=== PATIENT | female | born 1970 | race Caucasian/White ===

== ENCOUNTER 2019-11-11 05:05 | Inpatient (IN) | payer MEDICAID ==
[~2019-11-11] VITALS: Ht 157.5 cm; Wt 61.5 kg
[2019-11-11 06:18] VITALS: BP 105/66
[2019-11-11 06:55] LABS: ALBUMIN 2.9 g/dL (3.4-5.0); ANION GAP 6 mmol/L (5-15); CALCIUM 7.8 mg/dL (8.5-10.1); CHLORIDE 118 mmol/L (98-107); CREATININE 1.04 mg/dL (0.55-1.02)
[2019-11-11 06:58] LABS: ALANINE AMINOTRANSFERASE 12 U/L (12-78); MEAN CORPUSCULAR HEMOGLOBIN 26.4 pg (27.0-34.8); MEAN PLATELET VOLUME 7.4 fL (7.4-10.4); PLATELET COUNT 415 x10^3/uL (130-400); RED CELL DISTRIBUTION WIDTH 20.1 % (9.6-15.2)
[2019-11-11 06:59] LABS: INTERNATIONAL NORMALIZED RATIO 0.95 (0.93-1.1); PROTHROMBIN TIME 10.1 Seconds (9.6-11.5)
[2019-11-11 07:00] LABS: ALKALINE PHOSPHATASE 81 U/L (45-117); BILIRUBIN,TOTAL 0.3 mg/dL (0.2-1.0)
[2019-11-11 07:42] LABS: BASOPHILS # (AUTO) 0.02 x10^3/uL (0-0.1); BASOPHILS % (AUTO) 0 % (0-1); EOSINOPHILS # (AUTO) 0.01 x10^3/uL (0-0.4); EOSINOPHILS % (AUTO) 0 % (1-7); LYMPHOCYTES % (AUTO) 21 % (22-44); MD MORPH REVIEW ONLY; MONOCYTES # (AUTO) 0.39 x10^3/uL (0.2-0.8); MONOCYTES % (AUTO) 6 % (2-9); NEUTROPHILS # (AUTO) 4.99 x10^3/uL (1.8-6.8); NEUTROPHILS % (AUTO) 73 % (42-75)
[2019-11-11 07:46] VITALS: BP 103/69
[2019-11-11 07:54] LABS: ANISOCYTOSIS 2+; OVALOCYTES 2+; POLYCHROMASIA 1+
[2019-11-11 07:55] LABS: <PLATELET ESTIMATE> INCREASED; <PLT MORPHOLOGY> NORMAL PLT MORPH
[2019-11-11] MEDS ORDERED: PANTOPRAZOLE 80 MG in SODIUM CHLORIDE 0.9% 50 ML IV ONE (08:00)
[2019-11-11] MEDS ORDERED: morphine SULFATE 10 MG/ML, 1ML IVPush PRN (09:00)
[2019-11-11] MEDS ORDERED: BISACODYL 10 MG SUPP PR PRN (09:00)
[2019-11-11] MEDS ORDERED: hydrALAzine 20 MG/ML, 1ML IVPush PRN (09:00)
[2019-11-11] MEDS: NS + 20MEQ KCL 1,000 ML IV SCH (11:13)
[2019-11-11] MEDS: PANTOPRAZOLE 80 MG in SODIUM CHLORIDE 0.9% 100 ML IV SCH ×2 (11:13→22:10)
[2019-11-11] MEDS ORDERED: CHLORHEXIDINE 15 ML UDC ONE (11:56)
[2019-11-11] MEDS ORDERED: PROPOFOL 10 MG/ML, 20ML ONE ×2 (12:15)
[2019-11-11] MEDS ORDERED: FENTANYL PF 100 MCG/2ML IV PRN (13:00)
[2019-11-11] MEDS ORDERED: LABETALOL 5MG/ML, 20ML IV PRN (13:00)
[2019-11-11] MEDS ORDERED: HYDROmorphone 1 MG/ML, 1ML INJ IVPush PRN (13:00)
[2019-11-11] MEDS ORDERED: EPHEDRINE 50 MG/ML, 1ML IVPush PRN (13:00)
[2019-11-11] MEDS ORDERED: OXYcodone 5 MG/5 ML ORAL.SOL UDC PO PRN (13:00)
[2019-11-11] MEDS ORDERED: DIAZEPAM 5 MG/ML, 2ML IVPush PRN (13:00)
[2019-11-11] MEDS ORDERED: PROMETHAZINE 12.5 MG SUPP PR PRN (13:00)
[2019-11-11] MEDS ORDERED: MIDAZOLAM 1 MG/ML, 2ML IV PRN (13:00)
[2019-11-11] MEDS ORDERED: DIPHENHYDRAMINE 50 MG/ML, 1ML IVPush PRN (13:00)
[2019-11-11] MEDS ORDERED: hydrALAzine 20 MG/ML, 1ML IV PRN (13:00)
[2019-11-11] MEDS ORDERED: ALBUTEROL SULFATE 2.5 MG/3 ML NPPB PRN (13:00)
[2019-11-11] MEDS ORDERED: MEPERIDINE/PF 25MG/0.5ML IVPush PRN (13:00)
[2019-11-11] MEDS ORDERED: ONDANSETRON 2MG/ML, 2ML IVPush PRN (13:00)
[2019-11-11] MEDS ORDERED: PROMETHAZINE 25 MG/ML, 1ML IVPush PRN (13:00)
[2019-11-11 13:40] VITALS: BP 103/69
[2019-11-11 19:49] VITALS: BP 119/79
[2019-11-11] MEDS ORDERED: ACETAMINOPHEN 325 MG TABLET ONE (23:32)
[2019-11-11] MEDS: ACETAMINOPHEN 325 MG TABLET PO PRN (23:33)
[2019-11-12] MEDS: NS + 20MEQ KCL 1,000 ML IV SCH ×3 (00:32→20:26)
[2019-11-12 00:34] VITALS: BP 121/86
[2019-11-12 06:10] LABS: MEAN CORPUSCULAR HEMOGLOBIN 25.9 pg (27.0-34.8); MEAN CORPUSCULAR HGB CONC 31.6 g/dL (32.4-35.8); PLATELET COUNT 413 x10^3/uL (130-400); RED BLOOD COUNT 2.25 x10^6/uL (3.82-5.3); RED CELL DISTRIBUTION WIDTH 20.4 % (9.6-15.2)
[2019-11-12 06:28] LABS: ALBUMIN 2.9 g/dL (3.4-5.0); CALCIUM 8.1 mg/dL (8.5-10.1); CHLORIDE 118 mmol/L (98-107)
[2019-11-12 06:32] LABS: ALANINE AMINOTRANSFERASE 8 U/L (12-78); ALKALINE PHOSPHATASE 77 U/L (45-117); BILIRUBIN,TOTAL 0.4 mg/dL (0.2-1.0); CREATININE 0.87 mg/dL (0.55-1.02); TOTAL PROTEIN 6.2 g/dL (6.4-8.2)
[2019-11-12 06:41] LABS: ANION GAP 7 mmol/L (5-15)
[2019-11-12 06:56] LABS: BASOPHILS # (AUTO) 0.01 x10^3/uL (0-0.1); BASOPHILS % (AUTO) 0 % (0-1); EOSINOPHILS % (AUTO) 0 % (1-7); LYMPHOCYTES # (AUTO) 1.66 x10^3/uL (1-3.4); LYMPHOCYTES % (AUTO) 32 % (22-44); MD SCAN; MONOCYTES # (AUTO) 0.35 x10^3/uL (0.2-0.8); MONOCYTES % (AUTO) 7 % (2-9); NEUTROPHILS # (AUTO) 3.18 x10^3/uL (1.8-6.8); NEUTROPHILS % (AUTO) 61 % (42-75)
[2019-11-12 07:13] VITALS: BP 147/85
[2019-11-12] MEDS ORDERED: PANTOPRAZOLE 40 MG IV IVPush SCH (07:30)
[2019-11-12] MEDS: PANTOPRAZOLE 80 MG in SODIUM CHLORIDE 0.9% 100 ML IV SCH ×2 (08:35→20:26)
[2019-11-12] MEDS: ACETAMINOPHEN 325 MG TABLET PO PRN ×3 (08:46→22:20)
[2019-11-12 12:32] VITALS: BP 129/81
[2019-11-12] MEDS: ONDANSETRON 2MG/ML, 2ML IVPush PRN (20:26)
[2019-11-12 20:38] VITALS: BP 127/80
[2019-11-12] MEDS ORDERED: OXYcodone IR 5MG TABLET PO ONE (23:30)
[2019-11-13] VITALS (8 sets, daily range): BP systolic 116–138; BP diastolic 78–88
[2019-11-13 06:13] LABS: ABSOLUTE RETICS # 0.089 x10^6/uL (0.5-2.5); MEAN CORPUSCULAR HEMOGLOBIN 25.7 pg (27.0-34.8); MEAN CORPUSCULAR HGB CONC 31.3 g/dL (32.4-35.8); MEAN PLATELET VOLUME 7.6 fL (7.4-10.4); PLATELET COUNT 421 x10^3/uL (130-400); RED BLOOD COUNT 2.34 x10^6/uL (3.82-5.3); RED CELL DISTRIBUTION WIDTH 20.2 % (9.6-15.2); RETICULOCYTE COUNT % 3.82 % (0.5-1.5)
[2019-11-13 06:15] LABS: CHLORIDE 116 mmol/L (98-107)
[2019-11-13 06:16] LABS: RED BLOOD COUNT 2.34 x10^6/uL (3.82-5.3)
[2019-11-13] MEDS: PANTOPRAZOLE 80 MG in SODIUM CHLORIDE 0.9% 100 ML IV SCH ×2 (06:32→17:05)
[2019-11-13] MEDS: NS + 20MEQ KCL 1,000 ML IV SCH ×2 (06:32→17:05)
[2019-11-13 06:44] LABS: BASOPHILS # (AUTO) 0.02 x10^3/uL (0-0.1); BASOPHILS % (AUTO) 0 % (0-1); EOSINOPHILS % (AUTO) 0 % (1-7); LYMPHOCYTES # (AUTO) 1.77 x10^3/uL (1-3.4); LYMPHOCYTES % (AUTO) 32 % (22-44); MD SCAN; MONOCYTES # (AUTO) 0.33 x10^3/uL (0.2-0.8); MONOCYTES % (AUTO) 6 % (2-9); NEUTROPHILS # (AUTO) 3.43 x10^3/uL (1.8-6.8); NEUTROPHILS % (AUTO) 62 % (42-75)
[2019-11-13 07:07] LABS: % IRON SATURATION 5 % (20-55); ANION GAP 7 mmol/L (5-15); CALCIUM 8.3 mg/dL (8.5-10.1); IRON LEVEL 20 mcg/dL (50-170); TOTAL IRON BINDING CAPACITY 367 mcg/dL (250-450)
[2019-11-13] MEDS: LIDODERM 5% PATCH TD PRN (15:39)
[2019-11-13] MEDS ORDERED: GOLYTELY 4,000ML ORAL.SOL PO ONE (19:00)
[2019-11-13] MEDS: ONDANSETRON 2MG/ML, 2ML IVPush PRN (19:37)
[2019-11-13 22:51] LABS: OCCULT BLOOD NEGATIVE (NEGATIVE)
[2019-11-14 01:50] VITALS: BP 117/75
[2019-11-14] MEDS: ONDANSETRON 2MG/ML, 2ML IVPush PRN ×3 (02:01→22:27)
[2019-11-14] MEDS: ACETAMINOPHEN 325 MG TABLET PO PRN ×4 (02:02→22:27)
[2019-11-14] MEDS: PANTOPRAZOLE 80 MG in SODIUM CHLORIDE 0.9% 100 ML IV SCH ×2 (02:50→17:35)
[2019-11-14] MEDS: NS + 20MEQ KCL 1,000 ML IV SCH ×2 (02:50→16:50)
[2019-11-14 06:38] LABS: CHLORIDE 114 mmol/L (98-107)
[2019-11-14 06:44] LABS: MEAN CORPUSCULAR HEMOGLOBIN 26.8 pg (27.0-34.8); MEAN PLATELET VOLUME 7.7 fL (7.4-10.4); PLATELET COUNT 358 x10^3/uL (130-400); RED BLOOD COUNT 2.76 x10^6/uL (3.82-5.3); RED CELL DISTRIBUTION WIDTH 18.7 % (9.6-15.2)
[2019-11-14 06:57] LABS: ANION GAP 10 mmol/L (5-15); CALCIUM 8.3 mg/dL (8.5-10.1); CREATININE 0.81 mg/dL (0.55-1.02)
[2019-11-14 07:18] LABS: BASOPHILS # (AUTO) 0.02 x10^3/uL (0-0.1); BASOPHILS % (AUTO) 0 % (0-1); EOSINOPHILS # (AUTO) 0.01 x10^3/uL (0-0.4); EOSINOPHILS % (AUTO) 0 % (1-7); LYMPHOCYTES # (AUTO) 1.47 x10^3/uL (1-3.4); LYMPHOCYTES % (AUTO) 20 % (22-44); MD MORPH REVIEW ONLY; MONOCYTES # (AUTO) 0.33 x10^3/uL (0.2-0.8); MONOCYTES % (AUTO) 4 % (2-9); NEUTROPHILS # (AUTO) 5.73 x10^3/uL (1.8-6.8); NEUTROPHILS % (AUTO) 76 % (42-75)
[2019-11-14 07:20] LABS: <PLATELET ESTIMATE> ADEQUATE; <PLT MORPHOLOGY> NORMAL PLT MORPH; ANISOCYTOSIS 1+; OVALOCYTES 2+; POLYCHROMASIA 1+
[2019-11-14 08:30] VITALS: BP 132/82
[2019-11-14] MEDS ORDERED: CHLORHEXIDINE 15 ML UDC MM STA (09:55)
[2019-11-14] MEDS ORDERED: CHLORHEXIDINE 15 ML UDC ONE (11:18)
[2019-11-14] MEDS ORDERED: PROPOFOL 50 ML ONE (12:16)
[2019-11-14] MEDS: BUTALB/APAP/CAFFEINE 50MG/325MG/40MG PO PRN (13:34)
[2019-11-14 15:30] VITALS: BP 126/64
[2019-11-14] MEDS: LIDODERM 5% PATCH TD PRN (16:50)
[2019-11-14 18:52] VITALS: BP 132/85
[2019-11-14 23:05] LABS: CLOSTRIDIUM DIFFICILE ANTIGEN POSITIVE; CLOSTRIDIUM DIFFICILE TOXIN NEGATIVE (Negative)
[2019-11-15 00:21] VITALS: BP 124/76
[2019-11-15] MEDS ORDERED: MELATONIN 5 MG TABLET ONE (00:37)
[2019-11-15] MEDS: MELATONIN 5 MG TABLET PO PRN ×2 (00:41→22:17)
[2019-11-15 02:16] LABS: MICROSCOPIC AUTO
[2019-11-15] MEDS: BUTALB/APAP/CAFFEINE 50MG/325MG/40MG PO PRN ×3 (02:30→22:17)
[2019-11-15] MEDS: PANTOPRAZOLE 80 MG in SODIUM CHLORIDE 0.9% 100 ML IV SCH ×2 (03:39→09:00)
[2019-11-15] MEDS: NS + 20MEQ KCL 1,000 ML IV SCH ×3 (03:39→17:46)
[2019-11-15 06:46] LABS: MEAN CORPUSCULAR HEMOGLOBIN 26.5 pg (27.0-34.8); MEAN CORPUSCULAR HGB CONC 32.2 g/dL (32.4-35.8); MEAN PLATELET VOLUME 7.3 fL (7.4-10.4); PLATELET COUNT 384 x10^3/uL (130-400); RED BLOOD COUNT 2.67 x10^6/uL (3.82-5.3)
[2019-11-15 06:54] LABS: ANION GAP 6 mmol/L (5-15); CALCIUM 8.4 mg/dL (8.5-10.1); CHLORIDE 114 mmol/L (98-107)
[2019-11-15 06:55] LABS: CREATININE 0.78 mg/dL (0.55-1.02)
[2019-11-15 07:13] LABS: BASOPHILS # (AUTO) 0.01 x10^3/uL (0-0.1); BASOPHILS % (AUTO) 0 % (0-1); EOSINOPHILS % (AUTO) 0 % (1-7); LYMPHOCYTES # (AUTO) 1.75 x10^3/uL (1-3.4); LYMPHOCYTES % (AUTO) 30 % (22-44); MD MORPH REVIEW ONLY; MONOCYTES % (AUTO) 7 % (2-9); NEUTROPHILS # (AUTO) 3.58 x10^3/uL (1.8-6.8); NEUTROPHILS % (AUTO) 62 % (42-75)
[2019-11-15 07:14] LABS: <PLATELET ESTIMATE> ADEQUATE; <PLT MORPHOLOGY> NORMAL PLT MORPH; ANISOCYTOSIS 1+; OVALOCYTES 2+; POLYCHROMASIA 1+
[2019-11-15] MEDS ORDERED: IRON DEXTRAN COMPLEX 25 MG in SODIUM CHLORIDE 0.9% 50 ML IV ONE (07:30)
[2019-11-15] MEDS ORDERED: IRON DEXTRAN COMPLEX 0 MG in SODIUM CHLORIDE 0.9% 250 ML IV ONE (07:30)
[2019-11-15] MEDS ORDERED: EPINEPHRINE 1 MG/ML, 1ML SQ PRN (08:00)
[2019-11-15 08:25] LABS: CRYPTOSPORIDIUM ANTIGEN Negative (Negative)
[2019-11-15 08:50] VITALS: BP 121/81
[2019-11-15] MEDS ORDERED: IRON DEXTRAN COMPLEX 1,500 MG in SODIUM CHLORIDE 0.9% 250 ML IV ONE (12:00)
[2019-11-15] MEDS ORDERED: VANC125C11 PO (12:57)
[2019-11-15] MEDS: VANCOMYCIN 50 MG/ML ORAL SUSP PO SCH ×2 (13:00→17:47)
[2019-11-15 15:20] VITALS: BP 128/84
[2019-11-15] MEDS: POTASSIUM CHLORIDE 20 MEQ TAB.ER.PRT PO SCH (17:00)
[2019-11-15 19:29] VITALS: BP 141/84
[2019-11-15] MEDS: SUCRALFATE 1 GM TABLET PO SCH (20:05)
[2019-11-16] MEDS: VANCOMYCIN 50 MG/ML ORAL SUSP PO SCH ×2 (00:20→04:15)
[2019-11-16] MEDS: NS + 20MEQ KCL 1,000 ML IV SCH (00:25)
[2019-11-16 01:19] VITALS: BP 112/70
[2019-11-16] MEDS: ACETAMINOPHEN 325 MG TABLET PO PRN (02:31)
[2019-11-16 02:52] LABS: ANION GAP 8 mmol/L (5-15); CALCIUM 8.5 mg/dL (8.5-10.1); CHLORIDE 113 mmol/L (98-107); CREATININE 0.88 mg/dL (0.55-1.02); MEAN CORPUSCULAR HEMOGLOBIN 26.8 pg (27.0-34.8); MEAN CORPUSCULAR HGB CONC 33.1 g/dL (32.4-35.8); MEAN PLATELET VOLUME 7.6 fL (7.4-10.4); PLATELET COUNT 411 x10^3/uL (130-400); RED BLOOD COUNT 2.76 x10^6/uL (3.82-5.3); RED CELL DISTRIBUTION WIDTH 19.3 % (9.6-15.2)
[2019-11-16 04:22] LABS: BASOPHILS # (AUTO) 0.02 x10^3/uL (0-0.1); BASOPHILS % (AUTO) 0 % (0-1); EOSINOPHILS # (AUTO) 0.01 x10^3/uL (0-0.4); EOSINOPHILS % (AUTO) 0 % (1-7); LYMPHOCYTES # (AUTO) 2.45 x10^3/uL (1-3.4); LYMPHOCYTES % (AUTO) 26 % (22-44); MD MORPH REVIEW ONLY; MONOCYTES # (AUTO) 0.71 x10^3/uL (0.2-0.8); MONOCYTES % (AUTO) 8 % (2-9); NEUTROPHILS # (AUTO) 6.33 x10^3/uL (1.8-6.8); NEUTROPHILS % (AUTO) 67 % (42-75)
[2019-11-16 04:24] LABS: ANISOCYTOSIS 1+; OVALOCYTES 2+
[2019-11-16 04:25] LABS: <PLATELET ESTIMATE> ADEQUATE; <PLT MORPHOLOGY> NORMAL PLT MORPH
[2019-11-16 06:50] VITALS: BP 129/81
[2019-11-16] MEDS: POTASSIUM CHLORIDE 20 MEQ TAB.ER.PRT PO SCH (08:30)
[2019-11-16] MEDS: SUCRALFATE 1 GM TABLET PO SCH (08:30)
[2019-11-16] MEDS ORDERED: SUCR1TAB33 PO (10:46)
== END 2019-11-16 12:51 | disposition home or self-care (01) | DRG 244 ==
LOC: 5SO 06:02
PROVIDERS: ADMIT Family Medicine; ATTEND Internal Medicine
PROC: 0DB58ZX Excision of Esophagus, Via Natural or Artificial Opening Endoscopic, Diagnostic (ICD-10-PCS; 2019-11-14)
PROC: 0DBH8ZX Excision of Cecum, Via Natural or Artificial Opening Endoscopic, Diagnostic (ICD-10-PCS; 2019-11-14)
PROC: 0DBE8ZX Excision of Large Intestine, Via Natural or Artificial Opening Endoscopic, Diagnostic (ICD-10-PCS; 2019-11-14)
PROC: 30233N1 Transfusion of Nonautologous Red Blood Cells into Peripheral Vein, Percutaneous Approach (ICD-10-PCS; 2019-11-14)
PROC: 0DB98ZX Excision of Duodenum, Via Natural or Artificial Opening Endoscopic, Diagnostic (ICD-10-PCS; principal; 2019-11-14 13:45)
DX: K57.91 Diverticulosis of intestine, part unspecified, without perforation or abscess with bleeding (principal); E03.9 Hypothyroidism, unspecified; D50.9 Iron deficiency anemia, unspecified; N17.0 Acute kidney failure with tubular necrosis; K21.9 Gastro-esophageal reflux disease without esophagitis; J45.909 Unspecified asthma, uncomplicated; E78.5 Hyperlipidemia, unspecified; Z20.828 Contact with and (suspected) exposure to other viral communicable diseases; K58.9 Irritable bowel syndrome, unspecified; R12 Heartburn; E87.6 Hypokalemia; R53.83 Other fatigue; E66.9 Obesity, unspecified; K44.9 Diaphragmatic hernia without obstruction or gangrene; E86.9 Volume depletion, unspecified; G45.9 Transient cerebral ischemic attack, unspecified; Z80.8 Family history of malignant neoplasm of other organs or systems; Z82.49 Family history of ischemic heart disease and other diseases of the circulatory system; Z88.2 Allergy status to sulfonamides; Z88.5 Allergy status to narcotic agent; Z88.0 Allergy status to penicillin; Z88.8 Allergy status to other drugs, medicaments and biological substances; Z90.49 Acquired absence of other specified parts of digestive tract; Z90.710 Acquired absence of both cervix and uterus; Z68.24 Body mass index [BMI] 24.0-24.9, adult; Z80.0 Family history of malignant neoplasm of digestive organs; Z87.11 Personal history of peptic ulcer disease
CPT/HCPCS: 36415; 80048; 80053; 81001; 82272; 82607; 82668; 82728; 82784; 83010; 83516; 83540; 83550; 83615; 85014; 85018; 85025; 85045; 85610; 86850; 86860; 86870; 86880; 86900; 86902; 86905; 86906; 86922; 86923; 86970; 86978; 87046; 87086; 87147; 87324; 87328; 87329; 87427; 87635; 88305; 93308; 93321; 93325; G0378; J1750; J2405; J2704; J3370; J3480; C9113; J7050; P9016

== ENCOUNTER 2020-05-04 17:18 | Inpatient (IN) | payer MEDICAID ==
[~2020-05-04] VITALS: Ht 157.5 cm; Wt 76.9 kg
[~2020-05-04 17:18] MED LIST: SUCR1TAB33 PO; VANC125C11 PO
--- NOTE | 2020-05-04 17:34 | NUR ---
PT ALINA FROM [employer] [facility]. PER EMS PT HAD A SYNCOPAL EPISODE IN THE SHOWER TODAY, + LOC, AND WOKE UP WITH NOSE BLEED. PT REPORTS HAVING A SPINAL BLOCK ON MONDAY. PER EMS PT HAS HX OF GI BLEED AND ANEMIA. PT CURRENTLY RESTING IN [facility], MONITORING IN PLACE, EKG DONE, NADN AT THIS TIME, WILL CONTINUE TO MONITOR.
[2020-05-04] MEDS ORDERED: MORPHINE SULFATE 4 MG/ML, 1ML ONE (17:44)
[2020-05-04] MEDS ORDERED: ONDANSETRON 2MG/ML, 2ML ONE (17:45)
[2020-05-04] MEDS ORDERED: MORPHINE SULFATE 4 MG/ML, 1ML IVPush PRN (18:00)
[2020-05-04] MEDS ORDERED: ONDANSETRON 2MG/ML, 2ML IVPush ONE (18:00)
[2020-05-04 18:02] LABS: BASOPHILS % (AUTO) 0 % (0-1); EOSINOPHILS % (AUTO) 0 % (1-7); LYMPHOCYTES % (AUTO) 18 % (22-44); MEAN CORPUSCULAR HEMOGLOBIN 28.2 pg (27.0-34.8); MEAN CORPUSCULAR HGB CONC 31.9 g/dL (32.4-35.8); MEAN PLATELET VOLUME 7.9 fL (7.4-10.4); MONOCYTES % (AUTO) 5 % (2-9); NEUTROPHILS % (AUTO) 77 % (42-75); PLATELET COUNT 296 x10^3/uL (130-400); RED BLOOD COUNT 2.71 x10^6/uL (3.82-5.3); RED CELL DISTRIBUTION WIDTH 15.9 % (9.6-15.2)
[2020-05-04 18:04] LABS: MD NO
--- NOTE | 2020-05-04 18:35 | NUR ---
BREAK RN: PT WITH SUDDEN ONSET RIGHT SIDE SQUEEZING CP, RADIATES TO BACK. PAIN 8/10, DIZZY
--- NOTE | 2020-05-04 18:44 | NUR ---
BREAK RN: EKG COMPLETED, DR GOMEZ AT BEDSIDE, PT ASSESSMENT REVIEWED. PT C/O OF THE RIGHT SIDED DCP RADIATING TO BACK. HR DID LEEANN TO 42 DURRING EPISODE AND PT BECAME NAUSEOUS. DR GOMEZ TO ORDER CHEST CT.
--- NOTE | 2020-05-04 18:51 | NUR ---
BREAK RN: PT NOW RPTS PAIN 06/03. 02 2L NC PLACED 2/2 TO LOW H/H
--- NOTE | 2020-05-04 19:46 | NUR ---
PT TO CT VIA [place] WITH HARDWARE TRAINER.
[2020-05-04] MEDS ORDERED: DIPHENHYDRAMINE 50 MG/ML, 1ML IVPush ONE (20:30)
--- NOTE | 2020-05-04 20:57 | NUR ---
THIS RN CALLED BLOOD BANK, MACIEJ STATES THERE IS STILL ANTIBODY TESTING TO BE DONE AND BLOOD WILL NOT BE READY FOR AN HOUR OR TWO. MACIEJ WILL CALL WITH UPDATES.
[2020-05-04 21:34] LABS: TROPONIN I < 0.015 ng/mL (0.000-0.045)
[2020-05-04] MEDS ORDERED: ONDANSETRON ODT 4 MG PO PRN (22:30)
[2020-05-04] MEDS ORDERED: ENOXAPARIN 40 MG/0.4 ML SQ SCH (22:30)
[2020-05-04] MEDS ORDERED: BISACODYL 10 MG SUPP PR PRN (22:30)
[2020-05-04] MEDS ORDERED: hydrALAzine 20 MG/ML, 1ML IVPush PRN (22:30)
[2020-05-04] MEDS ORDERED: OXYcodone IR 5MG TABLET PO PRN (22:30)
[2020-05-04] MEDS ORDERED: POLYETHYLENE GLYCOL 17 GM PACKET PO PRN (22:30)
[2020-05-04] MEDS ORDERED: PROMETHAZINE 25 MG/ML, 1ML IM PRN (22:30)
[2020-05-04] MEDS ORDERED: DOCUSATE 100 MG CAPSULE PO PRN (22:30)
[2020-05-04] MEDS ORDERED: ONDANSETRON 2MG/ML, 2ML IVPush PRN (22:30)
[2020-05-04 22:43] VITALS: BP 113/73
[2020-05-04] MEDS ORDERED: TIZA4CAP PO (22:56)
[2020-05-04] MEDS ORDERED: DICY20TA3 PO (22:56)
[2020-05-04] MEDS ORDERED: FAMO-79 PO (22:56)
[2020-05-04] MEDS ORDERED: CETI10TA18 PO (22:56)
[2020-05-04] MEDS ORDERED: FAMO20TA7 PO (22:56)
[2020-05-04] MEDS ORDERED: THYR60TA PO (22:56)
[2020-05-04] MEDS ORDERED: PARO30TA45 PO (22:56)
[2020-05-04] MEDS ORDERED: TRAZ-175 PO (22:56)
[2020-05-04] MEDS ORDERED: PARO30TA3 PO (22:56)
[2020-05-04] MEDS ORDERED: ALBUTEROL HFA 90 MCG/SPRAY INH PRN (23:00)
[2020-05-04] MEDS: FLUTICASONE NASAL SPRAY 16GM NAS SCH (23:00)
[2020-05-04] MEDS ORDERED: BUDESONIDE 0.5 MG/2 ML INHA INH SCH (23:00)
[2020-05-04] MEDS ORDERED: TOPIRAMATE 25 MG TABLET PO SCH (23:00)
[2020-05-04] MEDS: SALMETEROL INH 50MCG/INH DISK.W.DEV INH SCH (23:00)
[2020-05-04] MEDS ORDERED: FAMOTIDINE 20 MG TABLET PO SCH (23:00)
[2020-05-04] MEDS: SODIUM CHLORIDE 0.9% 1,000 ML IV SCH (23:19)
[2020-05-04] MEDS: ACETAMINOPHEN 325 MG TABLET PO PRN (23:52)
[2020-05-05] VITALS (14 sets, daily range): BP systolic 103–142; BP diastolic 70–83
[2020-05-05 03:15] LABS: BASOPHILS % (AUTO) 0 % (0-1); EOSINOPHILS % (AUTO) 0 % (1-7); LYMPHOCYTES % (AUTO) 21 % (22-44); MEAN CORPUSCULAR HEMOGLOBIN 28.8 pg (27.0-34.8); MEAN CORPUSCULAR HGB CONC 33.7 g/dL (32.4-35.8); MEAN PLATELET VOLUME 7.9 fL (7.4-10.4); MONOCYTES % (AUTO) 7 % (2-9); NEUTROPHILS % (AUTO) 72 % (42-75); PLATELET COUNT 250 x10^3/uL (130-400); RED BLOOD COUNT 2.98 x10^6/uL (3.82-5.3); RED CELL DISTRIBUTION WIDTH 15.5 % (9.6-15.2)
[2020-05-05 03:17] LABS: MD NO
[2020-05-05 03:23] LABS: ALANINE AMINOTRANSFERASE 31 U/L (12-78); ALBUMIN 3.4 g/dL (3.4-5.0); ANION GAP 6 mmol/L (5-15); CALCIUM 8.1 mg/dL (8.5-10.1); CHLORIDE 112 mmol/L (98-107)
[2020-05-05 03:32] LABS: ALKALINE PHOSPHATASE 87 U/L (45-117); BILIRUBIN,TOTAL 0.4 mg/dL (0.2-1.0); CHOL/HDL RATIO 4.2; CHOLESTEROL, TOTAL 151 mg/dL (140-239); CREATININE 0.92 mg/dL (0.55-1.02); HDL CHOL % 24 % (28-40); HDL CHOLESTEROL (DIRECT) 36 mg/dL (40-60); LDL CHOLESTEROL,CALCULATED 84 mg/dL (54-169); LDL/HDL RATIO 2.3 (0.5-3.0); TOTAL PROTEIN 6.5 g/dL (6.4-8.2); TRIGLYCERIDES 155 mg/dL (50-200); TROPONIN I < 0.015 ng/mL (0.000-0.045); VLDL CHOLESTEROL 31 mg/dL (0-25)
[2020-05-05] MEDS ORDERED: THYROID 30 MG TABLET PO SCH (06:00)
[2020-05-05 08:43] LABS: TROPONIN I < 0.015 ng/mL (0.000-0.045)
[2020-05-05] MEDS: SALMETEROL INH 50MCG/INH DISK.W.DEV INH SCH (08:52)
[2020-05-05] MEDS: FLUTICASONE NASAL SPRAY 16GM NAS SCH (08:53)
[2020-05-05] MEDS: ACETAMINOPHEN 325 MG TABLET PO PRN (08:57)
[2020-05-05] MEDS ORDERED: PAROXETINE 10 MG TABLET PO SCH (09:00)
[2020-05-05] MEDS ORDERED: TIZANIDINE 4MG TABLET PO SCH (09:00)
[2020-05-05] MEDS: SODIUM CHLORIDE 0.9% 1,000 ML IV SCH (12:14)
[2020-05-05] MEDS ORDERED: FAMOTIDINE 20 MG TABLET PO SCH (21:00)
[2020-05-05] MEDS ORDERED: ATORVASTATIN 20 MG TABLET PO SCH (21:00)
== END 2020-05-05 15:54 | disposition home or self-care (01) | DRG 204 ==
LOC: ED 21:44 → EDIP 21:50 → 5SO 22:23 → DCLOUNGE 05-05 15:44
PROVIDERS: ADMIT Internal Medicine; ATTEND Internal Medicine
PROC: 30233N1 Transfusion of Nonautologous Red Blood Cells into Peripheral Vein, Percutaneous Approach (ICD-10-PCS; principal; 2020-05-05)
DX: R55 Syncope and collapse (principal); D64.9 Anemia, unspecified; E03.9 Hypothyroidism, unspecified; J45.909 Unspecified asthma, uncomplicated; K21.9 Gastro-esophageal reflux disease without esophagitis; W18.39XA Other fall on same level, initial encounter; S09.90XA Unspecified injury of head, initial encounter; Z80.0 Family history of malignant neoplasm of digestive organs; Z90.49 Acquired absence of other specified parts of digestive tract; Z90.710 Acquired absence of both cervix and uterus; Z93.3 Colostomy status; Z98.82 Breast implant status; Z88.5 Allergy status to narcotic agent; Z88.0 Allergy status to penicillin; Z88.2 Allergy status to sulfonamides; Y93.89 Activity, other specified; Y92.89 Other specified places as the place of occurrence of the external cause; Y99.8 Other external cause status
CPT/HCPCS: 36415; 70450; 71550; 80053; 80061; 83036; 83735; 84443; 84484; 85025; 86850; 86870; 86880; 86900; 86902; 86922; 86923; 93005; G0378; J1650; J2405; J1200; J2270; J7030; P9016